=== PATIENT | female | born 1965 | race Caucasian/White ===

== ENCOUNTER 2016-06-18 23:00 | Emergency (ER) | payer OTHER ==
[~2016-06-18] VITALS: Ht 160 cm; Wt 114.3 kg
[2016-06-18 23:02] VITALS: TEMP 36.9; Ht 160 cm; Wt 114.3 kg
--- NOTE | 2016-06-18 23:34 | EMERGENCY ROOM VISIT NOTE ---
ED Visit Note First contact with patient: 23:09 I have seen and examined this patient with Zenaida Cheung and generally agree with the treatment plan as discussed. Allergies Uncoded Allergies: PENICILLIN (Allergy, Intermediate, rash, 06/18/16) Vital Signs Date Time Temp Pulse Resp B/P Pulse Ox O2 Delivery O2 Flow Rate FiO2 06/18/16 23:02 36.9 84 22 104/70 94 Room Air Departure Information Referrals No Doctor, Assigned (PCP) Patient Instructions My [facility]
--- NOTE | 2016-06-18 23:40 | EMERGENCY ROOM VISIT NOTE ---
History First contact with patient: 23:09 Chief Complaint: RASH Stated Complaint: RASH UNDER LF BREAST GOING DOWN,PAINFUL History of Present Illness The patient is a 50 year old female who presents to the Emergency Room with complaints of rash beneath both breasts. The patient states she has been on antibiotics for an ear infection recently. She states that she noticed a rash beneath both breasts 2 days ago. She states she has had increasing pain, redness and tenderness. She rates her discomfort a 10/10. The patient is a diabetic and states that her sugars have been well-controlled. She denies any fevers. She has not tried any remedies for the rash. Review of Systems A 10 system review of systems was completed with positives and pertinent negatives listed in the HPI. Past Medical/Surgical History Medical Problems: (1) Bipolar 1 disorder (2) Diabetes (3) Hypertension Social History Smoking Status: Never Smoker Current/Historical Medications Scheduled Clotrimazole Vaginal (Clotrimazole), 1 APPLN TOP BID Fluconazole (Diflucan), 150 MG PO DAILY Allergies Uncoded Allergies: PENICILLIN (Allergy, Intermediate, rash, 06/18/16) Physical Exam Vital Signs Date Time Temp Pulse Resp B/P Pulse Ox O2 Delivery O2 Flow Rate FiO2 06/18/16 23:54 78 20 150/76 98 06/18/16 23:02 36.9 84 22 104/70 94 Room Air Physical Exam VITALS: Vitals are noted on the nurse's note and reviewed by myself. Vital signs stable. The patient is afebrile. GENERAL: This is a 50-year-old female, in no acute distress, nondiaphoretic, well-developed well-nourished. SKIN: There is erythema, warmth and the skin is malodorous beneath both breasts area and There is no tenting of the skin. Capillary reflex less than 2 seconds. HEAD: Normocephalic atraumatic. EARS: There is minimal erythema to the right tympanic membrane. The patient does not complain of pain in the right ear. EYES: Pupils equal round and reactive to light and accommodation. Conjunctivae without injection, sclerae without icterus. Extraocular movements intact. NOSE: Patent, turbinates without inflammation or discharge. No sinus tenderness. MOUTH: Mucous membranes moist. Tonsils are not enlarged. Pharynx without erythema or exudate. Uvula midline. Airway patent. Tongue does not deviate. NECK: Supple without nuchal rigidity. No JVD. HEART: Regular rate and rhythm without murmurs gallops or rubs. LUNGS: Clear to auscultation bilaterally without wheezes, rales or rhonchi. No retractions or accessory muscle use. MUSCULOSKELETAL: No muscle atrophy, erythema, or edema noted. Full range of motion in all extremities. NNormal gait. Strength 5/5 throughout. NEURO: Patient was alert and oriented to person place and time. No focal neurological deficits. Medical Decision & Procedures Medications Administered Medications (Trade) Dose Ordered Sig/Fredis Route Start Time Stop Time Status Last Admin Dose Admin Fluconazole (Diflucan Tab) 150 mg NOW ONCE PO 06/18/16 23:45 06/18/16 23:46 DC 06/18/16 23:44 150 MG Clotrimazole (Lotrimin 1% Crm) 1 appln NOW ONCE EXT 06/18/16 23:45 06/18/16 23:46 DC 06/18/16 23:44 1 APPLN ED Course The patient was seen and examined. Previous visits were reviewed. The patient is afebrile. She does have moderate to severe candidiasis beneath her bilateral breasts. The patient and the acquaintance with her request oral Diflucan. I'm not certain this will provide significant improvement in the cutaneous candidiasis that she was given 150 mg oral Diflucan and a second tablet to take in 72 hours. She will also be placed on clotrimazole twice a day for 7 days. She should keep the area as dry and clean as possible and apply powder during the day. She should return to the ER with any worsening symptoms. The patient was also seen and examined by who agrees with the assessment and treatment plan. Medical Decision The differential diagnosis includes candidiasis, cellulitis, abscess, among others Impression Primary Impression: Cutaneous candidiasis Departure Information Dispostion Home / Self-Care Condition GOOD Prescriptions Fluconazole (DIFLUCAN) 150 Mg Tab 150 MG PO DAILY for 1 Day, #1 TAB take in 72 hours if needed Prov: Zenaida Cheung PA-C 06/18/16 Clotrimazole Vaginal (CLOTRIMAZOLE) 1 % Cre 1 APPLN TOP BID for 10 Days, #1 TUBE Prov: Zenaida Cheung PA-C 06/18/16 Referrals No Doctor, Assigned (PCP) Patient Instructions ED Candidiasis Cutaneous, My [facility] Additional Instructions Apply the cream beneath both breasts 3 times daily for 7-10 days Between the applications of cream, apply a powder such as baby powder to attempt to keep the area as dry as possible Diflucan in 72 hours if symptoms persist Return to the ER with any worsening symptoms
[2016-06-18] MEDS ORDERED: FLUCONAZOLE 50 MG TAB PO ONE (23:45)
[2016-06-18] MEDS ORDERED: CLOTRIMAZOLE 1% CR 15 GM TUBE EXT ONE (23:45)
[2016-06-18] MEDS ORDERED: CLOT1CRE3 TOP (23:48)
[2016-06-18] MEDS ORDERED: FLUC150T PO (23:48)
[2016-06-18 23:54] VITALS: BP 150/76; PULSE 78; O2SAT 98
== END 2016-06-18 23:55 | disposition home or self-care (01) ==
LOC: C.EDB 23:01
DX: B37.2 Candidiasis of skin and nail (principal); E11.9 Type 2 diabetes mellitus without complications; I10 Essential (primary) hypertension; F31.9 Bipolar disorder, unspecified; Z88.0 Allergy status to penicillin

== ENCOUNTER → 2016-10-17 | Outpatient (CLI) | payer OTHER ==
[~2016-10-17] MED LIST: CLOT1CRE3 TOP
[2016-10-17 12:23] LABS: BASO % 0.4 %; BASO ABS # 0.03 K/uL (0-0.2); COMPLETE YES; EOS % 4.6 %; HEMATOCRIT 38.9 % (37-47); IG% 0.3 %; LYMPH % 29.6 %; LYMPH ABS # 2.01 K/uL (1.2-3.4); MEAN CELL VOLUME 86.4 fL (80-100); MEAN CORPUSCULAR HEMOGLOBIN 28.7 pg (25-34); MEAN CORPUSCULAR HGB CONC 33.2 g/dl (32-36); MEAN PLATELET VOLUME 10.3 fL (7.4-10.4); MONO % 12.8 %; NEUT % 52.3 %; PLATELET COUNT 237 K/uL (130-400); WHITE BLOOD COUNT 6.79 K/uL (4.8-10.8)
[2016-10-17 13:05] LABS: ESTIMATED AVERAGE GLUCOSE 120 mg/dl; HA1C FLAG Normal (Normal)
[2016-10-17 13:43] LABS: ALKALINE PHOSPHATASE 67 U/L (45-117); ALT/SGPT 33 U/L (12-78); BLOOD UREA NITROGEN 18 mg/dl (7-18); BUN/CREATININE RATIO 26.6 (10-20); CARBON DIOXIDE 20 mmol/L (21-32); CHLORIDE 109 mmol/L (98-107); CHOLESTEROL 163 mg/dl (0-200); CHOLESTEROL/HDL RATIO 2.7; CREATININE 0.68 mg/dl (0.60-1.20); GLUCOSE 96 mg/dl (70-99); HDL CHOLESTEROL 61 mg/dl; LDL CHOLESTEROL CALCULATED 89 mg/dl; POTASSIUM 4.1 mmol/L (3.5-5.1); SODIUM 140 mmol/L (136-145); TRIGLYCERIDES 66 mg/dl (0-150); VERY LOW DENSITY LIPOPROT CALC 13 mg/dl
[2016-10-17 13:52] LABS: ALB/GLOB RATIO 1.1 (0.9-2); AST/SGOT 22 U/L (15-37); TOTAL IRON BINDING CAPACITY 396 mcg/dl (250-450)
== END | disposition home or self-care (01) ==
LOC: C.LABPBG 08:31
PROVIDERS: ATTEND Neuromusculoskeletal Medicine & OMM
DX: Z00.00 Encounter for general adult medical examination without abnormal findings (principal); E11.9 Type 2 diabetes mellitus without complications; I10 Essential (primary) hypertension; D50.9 Iron deficiency anemia, unspecified

== ENCOUNTER → 2017-04-25 | Outpatient (CLI) | payer OTHER ==
[2017-04-25 12:18] LABS: HEMATOCRIT 38.9 % (37-47); MEAN CELL VOLUME 86.1 fL (80-100); MEAN CORPUSCULAR HEMOGLOBIN 28.5 pg (25-34); MEAN CORPUSCULAR HGB CONC 33.2 g/dl (32-36); MEAN PLATELET VOLUME 9.5 fL (7.4-10.4); PLATELET COUNT 263 K/uL (130-400); RED BLOOD COUNT 4.52 M/uL (4.2-5.4); WHITE BLOOD COUNT 7.45 K/uL (4.8-10.8)
[2017-04-25 13:27] LABS: ALT/SGPT 42 U/L (12-78); AST/SGOT 27 U/L (15-37); BLOOD UREA NITROGEN 21 mg/dl (7-18); BUN/CREATININE RATIO 31.5 (10-20); CALCIUM 8.9 mg/dl (8.5-10.1); CARBON DIOXIDE 24 mmol/L (21-32); CHLORIDE 105 mmol/L (98-107); CREATININE 0.66 mg/dl (0.60-1.20); GLUCOSE 99 mg/dl (70-99); POTASSIUM 3.8 mmol/L (3.5-5.1); SODIUM 137 mmol/L (136-145)
[2017-04-25 13:36] LABS: ESTIMATED AVERAGE GLUCOSE 120 mg/dl; HA1C FLAG Normal (Normal)
[2017-04-25 13:38] LABS: ALKALINE PHOSPHATASE 60 U/L (45-117); CHOLESTEROL 148 mg/dl (0-200); CHOLESTEROL/HDL RATIO 2.2; HDL CHOLESTEROL 68 mg/dl; LDL CHOLESTEROL CALCULATED 65 mg/dl; TRIGLYCERIDES 77 mg/dl (0-150); VERY LOW DENSITY LIPOPROT CALC 15 mg/dl
== END | disposition home or self-care (01) ==
LOC: C.LABPBG 10:25
PROVIDERS: ATTEND Family Medicine
DX: E11.9 Type 2 diabetes mellitus without complications (principal); I10 Essential (primary) hypertension; D50.9 Iron deficiency anemia, unspecified